=== PATIENT | female | born 1990 | race Caucasian/White ===

== ENCOUNTER 2017-06-19 15:04 | Emergency (ER) | payer BC ==
[2017-06-19 15:24] VITALS: BP 112/64
--- NOTE | 2017-06-19 15:59 | UC ---
FLU HPI - HPI Summary HPI Summary: 26 female presents to with complaints of cough, chest congestion, sore throat , myalgia, nasal congestion, ear pain and watery eyes that has been ongoing for the past 3 weeks. States she also has intermittent raspy voice. Has felt symptoms have been worsening over the past couple of days. Patient states she has just been drinking tea, honey and harvinder without relief. Denies any other complaints. No chest pain or difficulty breathing. Admits to productive cough, green mucus like sputum. States fever was at one time 100.1F but never higher. No other complaints at this time. No PMHx. Has been eating and drinking normally. No known sick contacts. Has not had flu shot. - History of Current Complaint Chief Complaint: UCRespiratory Stated Complaint: COLD SYMPTOMS Time Seen by Provider: 06/19/17 15:21 Hx Obtained From: Patient Hx Last Menstrual Period: 06/02/17 Onset/Duration: Sudden Onset, Lasting Weeks, Still Present, Worse Since Severity Currently: None Severity Initially: Moderate Pain Intensity: 2 Pain Scale Used: 0-10 Numeric Associated Signs & Symptoms: Positive: Fever - 100.1 f resolved, Myalgia, Cough , Sore Throat, Nasal Congestion, Vomiting - resolved over the past weekend x 3 episodes - Allergy/Home Medications Allergies/Adverse Reactions: Allergies Allergy/AdvReac Type Severity Reaction Status Date / Time Latex Allergy Intermediate swelling , Verified 06/19/17 15:24 rash, itching PMH/Surg Hx/FS Hx/Imm Hx - Additional Past Medical History Additional PMH: Denies PMHx no DM or HTN - Surgical History Surgical History: Yes Surgery Procedure, Year, and Place: CORRECTIVE EYE SURGERY - Family History Known Family History: Positive: None Negative: Respiratory Disease - Social History Alcohol Use: Occasionally Substance Use Type: None Smoking Status (MU): Never Smoked Tobacco - Immunization History Most Recent Influenza Vaccination: none Review of Systems Constitutional: Negative Eyes: Drainage - resolved ENT: Sore Throat, Ear Ache, Nasal Discharge, Sinus Congestion Respiratory: Cough Cardiovascular: Negative Gastrointestinal: Vomiting - resolved Motor: Negative Musculoskeletal: Myalgia Neurological: Negative All Other Systems Reviewed And Are Negative: Yes Physical Exam Triage Information Reviewed: Yes Appearance: Well-Appearing - raspy voice also sounding congested, No Pain Distress, Well-Nourished Vital Signs: Initial Vital Signs Temp 98.5 F 06/19/17 15:21 Pulse 80 06/19/17 15:21 Resp 16 06/19/17 15:21 BP 112/64 06/19/17 15:21 Pulse Ox 100 06/19/17 15:21 afebrile, not hypoxic Eye Exam: Normal Eyes: Positive: Conjunctiva Clear ENT Exam: Normal ENT: Positive: Hearing grossly normal, Pharynx normal, Nasal congestion, TMs normal, Uvula midline. Negative: Nasal drainage, Tonsillar swelling, Tonsillar exudate, Sinus tenderness Dental Exam: Normal Dental: Negative: Percussion Tenderness @, Cervical Lymphadenopathy Neck: Positive: Supple, Nontender, No Lymphadenopathy Respiratory: Positive: Chest non-tender, Lungs clear, Normal breath sounds, No respiratory distress, No accessory muscle use. Negative: Respiratory distress, Rhonchi, Stridor, Wheezing Cardiovascular Exam: Normal Cardiovascular: Positive: RRR, No Murmur, Pulses Normal Abdomen Description: Positive: Nontender, Soft Bowel Sounds: Positive: Present Skin Exam: Normal Flu Course/Dx - Course Course Of Treatment: due to length of symptoms being >3weeks with worsening and no improvement will treat with z oma and flonase, along with symptomatic measures. normal vitals, no concerning PE findings. appears to be suffering from bronchospasm as well due to complaints. follow up with pcp. aware of worsening signs and symptoms. patient agrees and understands. no other concerns of emergent etiology at this time. xray did not appear necessary at this time due to PE findings, HPI and normal vitals. will treat as URI/bronchitis. encouraged ibuprofen for costocondritis due to perisistant cough. rest and increase fluid intake. - Differential Dx/Diagnosis Differential Diagnosis/HQI/PQRI: Bronchitis, Pneumonia, Upper Respiratory Infection Provider Diagnoses: URI/Bronchitis Discharge - Discharge Plan Condition: Stable Disposition: HOME Patient Education Materials: Upper Respiratory Infection (ED), Acute Bronchitis (ED), Bronchospasm (ED) Referrals: Payam Ramirez DO [Primary Care Provider] - Additional Instructions: Take prescribed medication as directed. Also recommend Mucinex-D while symptoms persist. Continue tea, honey, hot showers, extra pillow at bedtime. Increase fluid intake and get plenty of rest. Zicam over the counter is a natural immune system booster, including zinc. Follow up with PCP in 1 week to ensure improvement. Any new or worsening symptoms please seek medical attention promptly, as discussed.
== END 2017-06-19 16:15 | disposition home or self-care (01) ==
LOC: UCCORT 15:04
DX: J06.9 Acute upper respiratory infection, unspecified (principal); J40 Bronchitis, not specified as acute or chronic
CPT/HCPCS: 99212; G0463